=== PATIENT | female | born 1995 | race American Indian/Alaskan Native ===

== ENCOUNTER 2017-03-29 21:54 | Emergency (ER) | payer SELFPAY ==
--- NOTE | 2017-03-30 02:13 | Emergency Department Report ---
ED ENT HPI - General Chief complaint: Sore Throat Stated complaint: THROAT PAIN Time Seen by Provider: 03/30/17 02:08 Source: patient Mode of arrival: Ambulatory Limitations: No Limitations - History of Present Illness Initial comments: This is a 22-year-old female that presents to the ED quitting sore throat. Patient states she was diagnosed with a strep throat 2 weeks ago. She's been taking antibiotics and only took 4 days. Patient states she did not complete a full course of antibiotics. Patient stated symptoms are returning of sore throat that is described as swallowing razor blades. Patient denies any hoarseness, facial swelling, pus, drainage, drooling, difficult breathing, shortness of breath, chest pain, fever, chills, headache, or stiff neck. Patient denies any allergies or past medical history. Last menstrual period 01/12. MD complaint: sore throat -: Gradual, week(s) (2) Severity: moderate Severity scale (0 -10): 9 Quality: other (swallowing razor blades) Consistency: constant Improves with: none Worsens with: none Associated Symptoms: sore throat. denies: fever, cough, gum swelling, toothache , pain with swallowing, tinnitus, hearing loss, discharge from ear, rhinorrhea - Related Data Previous Rx's Medication Instructions Recorded Last Taken Type Amoxicillin/Potassium Clav 500 mg PO Q12HR 10 Days 03/30/17 Unknown Rx [Augmentin 400-57 MG / 5ml] Allergies Allergy/AdvReac Type Severity Reaction Status Date / Time No Known Allergies Allergy Unverified 03/29/17 22:42 ED Dental HPI - General Chief complaint: Sore Throat Stated complaint: THROAT PAIN Time Seen by Provider: 03/30/17 02:08 Source: patient Mode of arrival: Ambulatory Limitations: No Limitations - Related Data Previous Rx's Medication Instructions Recorded Last Taken Type Amoxicillin/Potassium Clav 500 mg PO Q12HR 10 Days 03/30/17 Unknown Rx [Augmentin 400-57 MG / 5ml] Allergies Allergy/AdvReac Type Severity Reaction Status Date / Time No Known Allergies Allergy Unverified 03/29/17 22:42 ED Review of Systems ROS: Stated complaint: THROAT PAIN Other details as noted in HPI Constitutional: denies: chills, fever Eyes: denies: eye pain, eye discharge, vision change ENT: denies: ear pain, throat pain Respiratory: denies: cough, shortness of breath, wheezing Cardiovascular: denies: chest pain, palpitations Endocrine: no symptoms reported Gastrointestinal: denies: abdominal pain, nausea, diarrhea Genitourinary: denies: urgency, dysuria, discharge Musculoskeletal: denies: back pain, joint swelling, arthralgia Skin: denies: rash, lesions Neurological: denies: headache, weakness, paresthesias Psychiatric: denies: anxiety, depression Hematological/Lymphatic: denies: easy bleeding, easy bruising ED Past Medical Hx - Social History Smoking Status: Never Smoker Substance Use Type: None - Medications Home Medications: Home Medications Medication Instructions Recorded Confirmed Last Taken Type Amoxicillin/Potassium Clav 500 mg PO Q12HR 10 Days 03/30/17 Unknown Rx [Augmentin 400-57 MG / 5ml] ED Physical Exam - General Limitations: No Limitations General appearance: alert, in no apparent distress - Head Head exam: Present: atraumatic, normocephalic - Eye Eye exam: Present: normal appearance, PERRL, EOMI. Absent: scleral icterus, conjunctival injection, nystagmus, periorbital swelling, periorbital tenderness Pupils: Present: normal accommodation - ENT ENT exam: Present: mucous membranes moist, TM's normal bilaterally, normal external ear exam - Expanded ENT Exam Expanded Mouth exam: Present: normal external inspection, tongue normal. Absent: drooling, trismus, muffled voice, tongue elevation, laceration Teeth exam: Present: normal inspection Throat exam: Positive: tonsillar erythema, tonsillomegaly (2+), tonsillar exudate, other (Uvula midline. No tonsillar abscess or swelling noted. No pus or driange noted. ). Negative: R peritonsillar mass, L peritonsillar mass - Neck Neck exam: Present: normal inspection, full ROM. Absent: tenderness, meningismus, lymphadenopathy, thyromegaly - Respiratory Respiratory exam: Present: normal lung sounds bilaterally. Absent: respiratory distress, wheezes, rales, rhonchi, stridor, chest wall tenderness, accessory muscle use, decreased breath sounds, prolonged expiratory - Cardiovascular Cardiovascular Exam: Present: regular rate, normal rhythm, normal heart sounds. Absent: bradycardia, tachycardia, irregular rhythm, systolic murmur, diastolic murmur, rubs, gallop - GI/Abdominal GI/Abdominal exam: Present: soft, normal bowel sounds. Absent: distended, tenderness, guarding, rebound, rigid, diminished bowel sounds - Rectal Rectal exam: Present: deferred - Extremities Exam Extremities exam: Present: normal inspection, full ROM, normal capillary refill. Absent: tenderness, pedal edema, joint swelling, calf tenderness - Back Exam Back exam: Present: normal inspection, full ROM. Absent: tenderness, CVA tenderness (R), CVA tenderness (L), muscle spasm, paraspinal tenderness, vertebral tenderness, rash noted - Neurological Exam Neurological exam: Present: alert, oriented X3, CN II-XII intact, normal gait, reflexes normal - Psychiatric Psychiatric exam: Present: normal affect, normal mood - Skin Skin exam: Present: warm, dry, intact, normal color. Absent: rash ED Course Vital Signs 03/29/17 22:38 Temperature 98.9 F Pulse Rate 90 Respiratory 18 Rate Blood Pressure 127/78 O2 Sat by Pulse 100 Oximetry - Reevaluation(s) Reevaluation #1: 03/30/17 02:15 Patient is able speak full sentences with no signs of distress. ED Medical Decision Making - Medical Decision Making ED course; this is a 22-year-old female that presents with tonsillitis exudate 1- patient was examined by myself. Uvula midline. No obvious signs of abscess or swelling. Uvula midline. Patient be treated with Augmentin at discharge. 2- patient was instructed to follow-up with her primary care doctor in 3-5 days or symptoms such as drooling, difficulty breathing, fever, chills, stiff neck, headache, nausea, vomiting return to emergency room as soon as possible. 3- At time time of discharge, the patient does not seem toxic or ill in appearance. No acute signs of distress noted. Patient agrees to discharge treatment plan of care. No further questions noted by the patient. 4- patient is requesting for oral liquid antibiotics. Critical care attestation.: If time is entered above; I have spent that time in minutes in the direct care of this critically ill patient, excluding procedure time. ED Disposition Clinical Impression: Tonsillitis with exudate Disposition: DC TO HOME OR SELFCARE Is pt being admited?: No Does the pt Need Aspirin: No Condition: Stable Instructions: Tonsillitis (ED), Amoxicillin/Clavulanate Potassium (By mouth) Additional Instructions: follow-up with your primary care doctor in 3-5 days or symptoms such as drooling , difficulty breathing, fever, chills, stiff neck, headache, nausea, vomiting return to emergency room as soon as possible. Take full course of antibiotics as prescribed. Prescriptions: Amoxicillin/Potassium Clav [Augmentin 400-57 MG / 5ml] 500 mg PO Q12HR 10 Days Referrals: PRIMARY CAREMD [Primary Care Provider] - 3-5 Days ISACC KU MD [Staff Physician] - 3-5 Days [facility] [Outside] - 3-5 Days [facility] [Outside] - 3-5 Days Forms: Work/School Release Form(ED)
[2017-03-30 04:21] VITALS: BP 122/71
== END 2017-03-30 04:00 | disposition home or self-care (01) ==
LOC: ED 21:54
DX: J03.90 Acute tonsillitis, unspecified (principal)
CPT/HCPCS: 99282